=== PATIENT | male | born 1990 | race Caucasian/White ===

== ENCOUNTER 2021-02-10 13:47 | Emergency (ER) | payer MEDICAID, SELFPAY ==
[2021-02-10 14:20] VITALS: BP 150/74; PULSE 82; RESP 18; TEMP 36.9; O2SAT 97; BMI 32.1
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
[2021-02-10] MEDS: Diphth,Pertus(ACell),Tet Adult 0.5 ML SYRINGE IM (15:42)
== END 2021-02-10 15:47 | disposition home or self-care (01) ==
LOC: HO.ED 15:32
PROVIDERS: Emergency Provider Emergency Medicine
DX: S40.871A Other superficial bite of right upper arm, initial encounter (principal); W50.3XXA Accidental bite by another person, initial encounter; Y93.9 Activity, unspecified; Y92.9 Unspecified place or not applicable; Y99.9 Unspecified external cause status
CPT/HCPCS: 90471; 90715; 99283; 99284

== ENCOUNTER → 2021-07-02 14:42 | Outpatient (BNVA) | payer MEDICAID, SELFPAY | PROVIDERS: Referring Provider Emergency Medicine; Visit Provider Surgery | DX: Z01.818 Encounter for other preprocedural examination (principal); K40.90 Unilateral inguinal hernia, without obstruction or gangrene, not specified as recurrent | CPT/HCPCS: 99202 ==

== ENCOUNTER 2021-07-22 12:45 | Outpatient (REF) | payer MEDICAID, SELFPAY | END 2021-07-22 12:46 | disposition home or self-care (01) | LOC: HO.LAB 12:45 | PROVIDERS: Visit Provider Internal Medicine | DX: Z13.89 Encounter for screening for other disorder (principal) | CPT/HCPCS: C9803; U0003; U0005 ==

== ENCOUNTER 2021-07-29 06:46 | Day surgery (SDC) | payer MEDICAID, SELFPAY ==
--- NOTE | 2021-07-28 11:48 | P.CONAN_ITS ---
Documented by User: Elvie Dutta NP 07/28/21 11:48 HPI - Anesthesia Eval Consult details Narrative: 31yo M for Right Hernia Repair Inguinal with Mesh FORMERLY [facility], [facility] Active Problems Active Problems: All Active Problems (Updated 07/02/21 @ 15:04 by Ranjit Cruz MD) Inguinal hernia of right side without obstruction or gangrene (Acute) Past Medical History Medical History HTN (hypertension) Inguinal hernia of right side without obstruction or gangrene No known health problems Surgical History Surgical History History of appendectomy Social History Social History Patient Tobacco Use Status: Current everyday Tobacco user Tobacco use type: Cigarette Cigarette Packs Per Day: 3 Cigarettes Per Day: 60.0 Use of substances other than those prescribed or required for medical reasons: Yes Substance Use Frequency: Daily Are you DNR?: No Advance Directives: No Advance Directives Information Provided: Yes Meds Allergies Allergy/AdvReac Type Severity Reaction Status Date / Time No Known Allergies Allergy Verified 07/29/21 07:46 Exam Exam Date and Time: July 28, 2021 1148 Assessment and Plan Assessment Anesthesia Assessment: Chart Reviewed Documented by User: Lakshmi Coronado MD 07/29/21 09:34 FORMERLY [facility], [facility] Past Medical History Medical History HTN (hypertension) Inguinal hernia of right side without obstruction or gangrene No known health problems Surgical History Surgical History History of appendectomy History of Problems with Anesthesia: No Social History Social History Patient Tobacco Use Status: Current everyday Tobacco user Tobacco use type: Cigarette Cigarette Packs Per Day: 3 Cigarettes Per Day: 60.0 Use of substances other than those prescribed or required for medical reasons: Yes Substance Use Frequency: Daily Are you DNR?: No Advance Directives: No Advance Directives Information Provided: Yes Meds Allergies Allergy/AdvReac Type Severity Reaction Status Date / Time No Known Allergies Allergy Verified 07/29/21 07:46 Exam Airway Mallampati Class: II TM Dist: >3cm Neck ROM: Full Loose/Missing/Broken Teeth: No Heart: RRR Lungs: CTA Assessment and Plan Assessment Anesthesia Assessment: Anesthesia Plan Discussed Final Anesthetic Review History of Problems with Anesthesia: No NPO: Yes ASA Class: II Final Preanesthetic Review: Meds/Allgs Chart Reviewed, Consent Obtained/Reviewed and Anes Risks/Benef Reviewed Patient Risk: Low Procedure Risk: Low Anesthetic Plan Anesthetic Plan: GA Disposition: Standard PACU
[2021-07-29] VITALS (9 sets, daily range): BP systolic 127–144; BP diastolic 77–88; PULSE 45–74; RESP 13–20; TEMP 36.8–37.2; O2SAT 91–99; BMI 29.2
[2021-07-29] MEDS: Lactated Ringers 1,000 ML 100 ML IVCONT (07:45)
--- NOTE | 2021-07-29 08:21 | MHC.SHP ---
Pre-Procedural Eval Section A Date of Service: 07/29/21 The patient is an INPATIENT: No The History & Physical has been completed within 30 days and I have reviewed it.: No Section B Chief Complaint: Inguinal hernia of right side without obstruction Allergies: Allergies Allergy/AdvReac Type Severity Reaction Status Date / Time No Known Allergies Allergy Verified 07/29/21 07:46 Plan I have reviewed the history and physical and performed a pertinent physical examination on my patient. No changes have occurred unless specified.
--- NOTE | 2021-07-29 09:45 | W.PM.OPN ---
Operative Note Operative Note Date of Service: 07/29/21 Narrative: Preop diagnosis: Right inguinal hernia Postop diagnosis: Inguinal hernia, direct Procedure: Repair of right inguinal hernia with mesh Surgeon: Ranjit Cruz MD diploma medical assistant: JUAN Diane The patient is a 31-year-old male with a reducible mass on the right groin area, noticeable with Valsalva maneuvers. He describes discomfort as well. Examination was consistent with a right inguinal hernia. He wanted to proceed with repair. He understood technique of repair with mesh. He was aware of the risks, benefits, and alternatives. He was brought to the operating room and placed supine on the table under general anesthesia via laryngeal mask airway. The right groin was prepped and draped in the usual sterile fashion. A surgical time-out was done. The patient received cefazolin 2 g IV preoperatively I infiltrated the planned line of incision using lidocaine 1%. I made a short incision on the skin using blade 15 along an imaginary line from the anterior superior iliac spine to the pubic ramus. This was carried down through the full thickness of the skin and subcutaneous fat with electrocautery. I reached the external oblique aponeurosis. I bluntly dissected the aponeurosis to define the external ring. I opened up the pubic neurosis overlying the inguinal canal with make a short incision using a blade 15. And extending this inferomedially with an open tip pair of scissors to connect with the external ring. Hemostats were applied to the divided edges of the aponeurosis. I bluntly dissected the underside of the aponeurosis to create a pocket for the mesh. I then bluntly dissected the spermatic cord and its contents with the finger until was able to pass a [place] drain around this. This Harriett drain was used for retraction. I defined the vas deferens and the accompanying vessels. I did not see any the sac on the cord going through the internal ring. However, there was note of significant weakness of the floor of the canal with a small hernia consistent with the direct hernia. I used a medium-sized plug to reinforce this. I secured the plug with Prolene 2-0 sutures to shelving edge of the inguinal ligament laterally and the internal oblique superiorly and medially as well as the pubic ramus inferomedially using inner leaves of the mesh. I reinforced the floor of the canal with a keyhole mesh. The tails of the mesh were passed around the cord at the level of the internal ring and were secured together with Prolene 2 sutures. I flattened the mesh on the floor of the canal and secured this to the shelving edge of the inguinal and laterally and the pubic ramus inferomedially and the internal oblique medially as well as superiorly. I irrigated. Once hemostasis was ensured, I proceeded to close the external oblique aponeurosis a running Dexon 2-0 stitch to re-create the external ring. The subcutaneous layer was reapposed with Dexon 3-0 interrupted sutures. Skin closure was achieved with Dexon 4-0 subcuticular running stitch. Steri-Strips and dressings were applied. The area was infiltrated with Marcaine 0.5% for postop analgesia. Dressings were applied and the procedure was completed The patient tolerated procedure well. There were no complication noted. Initial and final counts of sponges and instruments were correct. Estimated blood loss about 10 cc. The patient was extubated without difficulty and transferred to the recovery room with stable vital signs.
[2021-07-29] MEDS: Acetaminophen 325 MG TABLET 650 MG PO (10:04)
[2021-07-29] MEDS: ondansetron HCL 4 MG/2 ML VIAL IVPUSH (10:04)
[2021-07-29] MEDS: oxyCODONE HCl Immed Release 5 MG TABLET 10 MG PO (10:05)
== END 2021-07-29 11:34 | disposition home or self-care (01) ==
PROVIDERS: Visit Provider Surgery
PROC: (CPT 49505; principal; 2021-07-29 08:40)
DX: K40.90 Unilateral inguinal hernia, without obstruction or gangrene, not specified as recurrent (principal); I10 Essential (primary) hypertension; F17.210 Nicotine dependence, cigarettes, uncomplicated
CPT/HCPCS: 49505; C1781; J0690; J1100; J2250; J2405; J3010

== ENCOUNTER → 2021-08-11 09:35 | Outpatient (BNVA) | payer MEDICAID, SELFPAY | PROVIDERS: PCP Nurse Practitioner; Referring Provider Emergency Medicine; Visit Provider Surgery | DX: Z48.815 Encounter for surgical aftercare following surgery on the digestive system (principal); Z87.19 Personal history of other diseases of the digestive system | CPT/HCPCS: 99212 ==

== ENCOUNTER 2021-08-25 08:41 | Outpatient (REF) | payer MEDICAID, SELFPAY ==
[2021-08-25 08:58] LABS: Binax Internal Control QC Valid; Binax Now Covid-19 Ag Negative (Negative)
== END 2021-08-25 08:42 | disposition home or self-care (01) ==
LOC: HO.LAB 08:41
PROVIDERS: Visit Provider Internal Medicine
DX: Z13.89 Encounter for screening for other disorder (principal)

== ENCOUNTER 2025-04-06 10:41 | Outpatient (REF) | payer MEDICAID, SELFPAY ==
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
--- OUTSIDE RECORDS SUMMARY | 2025-04-06 12:15 | XMS_ITS | Encounter Summary ---
Author Organization [employer] Address [address] [place] [address] [address] [place] [address] Care Team Providers Care Weight Calculator Name Role Phone Kandice Thayer CNP Primary Care Provider [phone] Reason for Visit * Reason Onset Date Comments Med Refill 03/19/2025 Encounter Details Date Type Department Care Team (Late st Contact Info) Description 03/19/2025 Telephone [facility] [address] [place] [address] Kandice Thayer CNP [address] [place] [address] Med Refill Social History Tobacco Use Types Packs/Day Years Used Date Smoking Tobacco: Former Cigarettes Passive Smoke Exposure: Past Smokeless Tobacco: Former Sex and Gender Information Value Date Recorded Sex Assigned at Male 05/25/2022 10:16 AM EDT Legal Sex Male 10:16 AM EDT Gender Identity Male 05/25/2022 10:16 AM EDT Sexual Orientation Don't know 05/25/2022 10 :16 AM EDT documented as of this encounter Miscellaneous Notes * Telephone Encounter - Alanis Johnson - 03/19/2025 1:50 PM EDT TC from pt requesting medication refill. Medications needing refill : oxyCODONE (Roxicodone) 5 MG immediate release tablet To be sent to: [facility]/pharmacy #[id number] - [place], [place] - [address] [place] [address] documented in this encounter Plan of Treatment Upcoming Encounters Date Type Department Care Team (Late st Contact Info) Description 05/01/2025 1:30 PM EDT Clinical Support [facility] [address] [place] [address] Chyna Rehman, RN [address] [place] [address] 05/09/2025 10:45 AM EDT Office Visit [facility] [address] [place] [address] Kandice Thayer CNP [address] [place], [place] [phone] documented as of this encounter Visit Diagnoses Not on filedocumented in this encounter Care Teams Weight Calculator Relationship Specialty Start Date End Date Kandice Thayer CNP [address] [place], [place] [id number] PCP - General Family Medicine 03/09/25 documented as of this encounter
--- OUTSIDE RECORDS SUMMARY | 2025-04-06 12:15 | XMS_ITS | Encounter Summary ---
Author Organization [employer] Address [address] [facility] [address] [place] [address] Care Team Providers Care Environmental Health And Safety Intern Name Role Phone Kandice Thayer CNP Primary Care Provider [phone] Reason for Visit * Reason Onset Date Comments Med Refill 03/19/2025 Encounter Details Date Type Department Care Team (Late st Contact Info) Description 03/19/2025 Telephone [facility] [address] [place] [address] Kandice Thayer CNP [address] [place] [address] Med Refill Social History Tobacco Use Types [...] encounter Miscellaneous Notes * Telephone Encounter - Chyna Rehman RN - 03/19/2025 3:07 PM EDT Pt requesting refill of Oxycodone 5mg. Last refill 03/07/25 qty 42 from an outside provider, Maria Elena * Telephone Encounter - Abigail العلي LPN - 03/19/2025 1:56 PM EDT Was Gabapentin for short term? BUSINESS PROJECT MANAGER checked on 03/19/25 last filled on 03/07/25 #42 (14 day supply) from [facility]. Is PCP prescribing Clonidine? Please advise. * Telephone Encounter - Alanis Johnson - 03/19/2025 1:52 PM EDT TC from pt requesting medication refill. Medications needing refill : cloNIDine (Catapres) 0.1 MG tablet gabapentin (Neurontin) 300 MG capsule To be sent to: [facility]/pharmacy #[id number] documented in this encounter Plan of Treatment Upcoming Encounters Date Type Department Care Team (Late st Contact Info) Description 05/01/2025 1:30 PM EDT Clinical Support [facility] [address] [place] [address] Chyna Rehman, RN [address] [place] [address] 05/09/2025 10:45 AM EDT Office Visit [facility] [address] [place] [address] Kandice Thayer CNP [address] [place] [address] documented as of this encounter Visit Diagnoses Diagnosis Closed fracture of shaft of left fibula with routine healing, unspecified fracture morphology, subsequent encounter Closed fracture of superior ramus of left pubis with routine healing, subsequent encounter documented in this encounter Care Teams Environmental Health And Safety Intern Relationship Specialty Start Date End Date Kandice Thayer CNP [address] [place], [place] [phone] PCP - General Family Medicine 03/09/25 documented as of this encounter
--- OUTSIDE RECORDS SUMMARY | 2025-04-06 12:15 | XMS_ITS | Encounter Summary ---
Author Organization [employer] Address [address] [facility] [address] [place] [address] Care Team Providers Care Stock And Station Agent Name Role Phone Kandice Thayer CNP Primary Care Provider [phone] Encounter Details Date Type Department Care Team (Latest Contact Info) Description 04/05/2025 Travel Social History Tobacco Use Types Packs/Day Years [...] with others, in a hotel, in a intermediate, living outside on the street, on a [...] AM EDT documented as of this encounter Plan of Treatment Upcoming Encounters Date Type Department Care Team (Late st Contact Info) Description 05/01/2025 1:30 PM EDT Clinical Support [facility] [address] [place] [address] Chyna Rehman, RN [address] [place] [address] 05/09/2025 10:45 AM EDT Office Visit [facility] [address] [place] [address] Kandice Thayer CNP [address] [place] [address] documented as of this encounter Visit Diagnoses Not on filedocumented in this encounter Care Teams Stock And Station Agent Relationship Specialty Start Date End Date Kandice Thayer CNP [address] [place] [address] PCP - General Family Medicine 03/09/25 documented as of this encounter
--- OUTSIDE RECORDS SUMMARY | 2025-04-06 12:15 | XMS_ITS | Clinical Summary ---
Author Organization [employer] Address [address] [place] [address] Care Team Providers Care Corner Bead Operator Name Role Phone Jeovany Jose Adesiree FUNES Primary Care Provider [phone] Allergies No known active allergies Medications Melatonin 3 MG tablet dispersible Take 3 tablets by mouth at bedtime. Active naloxone (Narcan) 4 mg/0.1 mL nasal sprayIndicatio ns:Closed fracture of shaft of left fibula with routine healing, unspecified fracture morphology, subsequent encounter,Clos ed fracture of superior ramus of left pubis with routine healing, subsequent encounter Administer 1 spray (4 mg) into affected nostril(s) if needed for opioid reversal. May repeat every 2-3 minutes if needed, alternating nostrils, until medical assistance becomes available. 2 each 03/20/20 25 026 Active gabapentin (Neurontin) 300 MG capsuleIndicat ions:Closed fracture of shaft of left fibula with routine healing, unspecified fracture morphology, subsequent encounter,Clos ed fracture of superior ramus of left pubis with routine healing, subsequent encounter Take 1 capsule (300 mg) by mouth 3 times daily. X 2 weeks 270 capsule 03/20/20 25 025 Active methocarbamol (Robaxin) 500 MG tabletIndicati ons:Closed fracture of shaft of left fibula with routine healing, unspecified fracture morphology, subsequent encounter,Clos ed fracture of superior ramus of left pubis with routine healing, subsequent encounter Take 2 tablets (1,000 mg) by mouth if needed in the morning, at noon, and at bedtime for muscle spasms for up to 14 days. 60 tablet 03/27/20 25 025 Active melatonin 3 MG tablet TAKE 3 TABLET BY MOUTH DAILY AT BEDTIME FOR 14 DAYS 03/07/20 25 Active cloNIDine (Catapres) 0.1 MG tabletIndicati ons:Anxiety Take 1 tablet (0.1 mg) by mouth every 8 (eight) hours. X 2 weeks 30 tablet 03/30/20 25 Active amLODIPine (Norvasc) 5 MG tablet Take 2 tablets (10 mg) by mouth Once per day. 180 tablet 04/02/20 25 Active ASPIRIN 81 MG chewable tablet Chew 1 tablet (81 mg) Once per day. 90 tablet 04/02/20 25 Active traZODone (Desyrel) 50 MG tablet Take 0.5 tablets by mouth at bedtime. 45 tablet 04/02/20 25 Active acetaminophen (Tylenol) 325 MG tabletIndicati ons:Closed fracture of shaft of left fibula with routine healing, unspecified fracture morphology, subsequent encounter Take 3 tablets (975 mg) by mouth every 6 (six) hours. 30 tablet 04/02/20 25 Active oxyCODONE (Roxicodone) 5 MG immediate release tabletIndicati ons:Closed fracture of shaft of left fibula with routine healing, unspecified fracture morphology, subsequent encounter,[facility] ed fracture of superior ramus of left pubis with routine healing, subsequent encounter Take 1 tablet (5 mg) by mouth if needed in the morning, at noon, and at bedtime for moderate pain for up to 14 days. 42 tablet 04/06/20 25 025 Active thiamine (Vitamin B-1) 100 MG tablet Take 1 tablet (100 mg) by mouth Once per day. 30 tablet 2 04/06/20 25 Active pantoprazole (ProtoNix) 40 MG EC tablet Take 1 tablet (40 mg) by mouth in the morning and 1 tablet (40 mg) in the evening. Do not crush, chew, or split. 60 tablet 2 04/06/20 25 Active lisinopril (Prinivil) 20 MG tabletIndicati ons:Hypertensi on, unspecified type Take 1 tablet (20 mg) by mouth Once per day. 30 tablet 11 04/06/20 25 026 Active lisinopril 10 MG tablet Take 1 tablet (10 mg) by mouth in the morning. 30 tablet 11 06/10/20 23 025 Discontinued(M ed list cleanup (will not trigger notification to Pharmacy)) thiamine (Vitamin B-1) 100 MG tablet Take 1 tablet by mouth Once per day. 025 Discontinued(R eorder (will not trigger notification to Pharmacy)) pantoprazole (ProtoNix) 40 MG EC tablet Take 1 tablet by mouth in the morning and 1 tablet in the evening. Do not crush, chew, or split. 025 Discontinued(R eorder (will not trigger notification to Pharmacy)) lisinopril 5 MG tablet Take 1 tablet by mouth Once per day. 025 Discontinued gabapentin (Neurontin) 300 MG capsule Take 1 capsule by mouth 3 times daily. X 2 weeks 025 Discontinued(R eorder (will not trigger notification to Pharmacy)) amLODIPine (Norvasc) 5 MG tablet Take 2 tablets by mouth Once per day. 025 Discontinued(R eorder (will not trigger notification to Pharmacy)) ASPIRIN 81 MG chewable tablet Chew 1 tablet Once per day. 025 Discontinued(R eorder (will not trigger notification to Pharmacy)) traZODone (Desyrel) 50 MG tablet Take 0.5 tablets by mouth at bedtime. 025 Discontinued(R eorder (will not trigger notification to Pharmacy)) cloNIDine (Catapres) 0.1 MG tablet Take 1 tablet by mouth every 8 (eight) hours. X 2 weeks 025 Discontinued(R eorder (will not trigger notification to Pharmacy)) acetaminophen (Tylenol) 325 MG tablet Take 3 tablets by mouth every 6 (six) hours. 025 Discontinued(R eorder (will not trigger notification to Pharmacy)) oxyCODONE (Roxicodone) 5 MG immediate release tablet Take 1 tablet by mouth every 4 (four) hours if needed for moderate pain. 03/07/20 25 025 Discontinued(R eorder (will not trigger notification to Pharmacy)) acetaminophen (Tylenol) 325 MG tabletIndicati ons:Closed fracture of shaft of left fibula with routine healing, unspecified fracture morphology, subsequent encounter Take 3 tablets (975 mg) by mouth every 6 (six) hours. 30 tablet 03/09/20 25 025 Discontinued(R eorder (will not trigger notification to Pharmacy)) lisinopril 10 MG tabletIndicati ons:Hypertensi on, unspecified type Take 1 tablet (10 mg) by mouth Once per day. 30 tablet 11 03/09/20 25 025 Discontinued(I neffective) oxyCODONE (Roxicodone) 5 MG immediate release tabletIndicati ons:Closed fracture of shaft of left fibula with routine healing, unspecified fracture morphology, subsequent encounter,Clos ed fracture of superior ramus of left pubis with routine healing, subsequent encounter Take 1 tablet (5 mg) by mouth every 4 (four) hours if needed for moderate pain for up to 7 days. 15 tablet 03/09/20 25 025 Discontinued(R eorder (will not trigger notification to Pharmacy)) gabapentin (Neurontin) 300 MG capsuleIndicat ions:Closed fracture of shaft of left fibula with routine healing, unspecified fracture morphology, subsequent encounter,Clos ed fracture of superior ramus of left pubis with routine healing, subsequent encounter Take 1 capsule (300 mg) by mouth 3 times daily. X 2 weeks 90 capsule 03/09/20 25 025 Discontinued(R eorder (will not trigger notification to Pharmacy)) methocarbamol (Robaxin) 500 MG tabletIndicati ons:Closed fracture of shaft of left fibula with routine healing, unspecified fracture morphology, subsequent encounter,Clos ed fracture of superior ramus of left pubis with routine healing, subsequent encounter Take 2 tablets (1,000 mg) by mouth if needed in the morning, at noon, and at bedtime for muscle spasms for up to 14 days. 60 tablet 03/09/20 25 025 Discontinued(R eorder (will not trigger notification to Pharmacy)) cloNIDine (Catapres) 0.1 MG tabletIndicati ons:Anxiety Take 1 tablet (0.1 mg) by mouth every 8 (eight) hours. X 2 weeks 30 tablet 03/20/20 25 025 Discontinued(R eorder (will not trigger notification to Pharmacy)) oxyCODONE (Roxicodone) 5 MG immediate release tabletIndicati ons:Closed fracture of shaft of left fibula with routine healing, unspecified fracture morphology, subsequent encounter,Clos ed fracture of superior ramus of left pubis with routine healing, subsequent encounter Take 1 tablet (5 mg) by mouth if needed in the morning, at noon, and at bedtime for moderate pain for up to 14 days. 42 tablet 03/20/20 25 025 Discontinued(R eorder (will not trigger notification to Pharmacy)) Active Problems Problem Noted Date Diagnosed Date Anxiety 2023 Assessment & Plan (04/06/2025 11:52 AM EDT): Controlled on current medications, denies any present sx Essential hypertension 11/23/2020 Resolved Problems Problem Noted Date Diagnosed Date Resolved Date Cigarette smoker 06/25/2023 06/25/2023 03/09/2025 Encounters Date Type Department Care Team Description 04/06/2025 10:00 AM EDT Office Visit [facility] [address] [place] [address] Kandice Thayer CNP Encounter for physical examination (Primary Dx); Hypertension, unspecified type; Closed fracture of shaft of left fibula with routine healing, unspecified fracture morphology, subsequent encounter; Closed nondisplaced subtrochanteric fracture of left femur with routine healing, subsequent encounter; Closed fracture of superior ramus of left pubis with routine healing, subsequent encounter; Anxiety 04/06/2025 Travel 04/05/2025 Travel 04/05/2025 Refill [facility] [address] [place] [address] Kandice Thayer CNP Closed fracture of shaft of left fibula with routine healing, unspecified fracture morphology, subsequent encounter; Closed fracture of superior ramus of left pubis with routine healing, subsequent encounter 04/05/2025 Telephone [facility] [address] [place] [address] Kandice Thayer CNP Med Refill 04/02/2025 Refill [facility] [address] [place] [address] Kandice Thayer CNP Closed fracture of shaft of left fibula with routine healing, unspecified fracture morphology, subsequent encounter 03/30/2025 Patient Outreach [facility] [address] [place] [phone] Kandice Thayer CNP Pre-visit Planning (SDOH screening positive and Tobacco screening positive) 03/30/2025 Refill [facility] [address] [place] [address] Kandice Thayer CNP Anxiety 03/28/2025 Population Health Risk Score [facility] () Department [address] [place] [id number] Provider, Population Health Generic 03/27/2025 2:30 PM EDT Clinical Support [facility] [address] [place] [address] Hayde Arcos RN Anxiety 03/27/2025 Telephone [facility] [address] [place] [address] Kandice Thayer CNP chart prep 03/27/2025 Travel 03/27/2025 Telephone [facility] [address] [place] [address] Kandice Thayer CNP Appointment Request 03/27/2025 Telephone [facility] [address] [place] [address] Kandice Thayer CNP Med Refill 03/20/2025 Orders Only [facility] [address] [place] [address] Kandice Thayer CNP Anxiety (Primary Dx); Closed fracture of shaft of left fibula with routine healing, unspecified fracture morphology, subsequent encounter; Closed fracture of superior ramus of left pubis with routine healing, subsequent encounter 03/19/2025 Telephone [facility] [address] [place] [address] Kandice Thayer CNP Med Refill 03/19/[address] [address] Kandice Thayer CNP Med Refill 03/09/2025 1:30 PM EDT Office Visit [address] [address] Kandice Thayer CNP Hypertension, unspecified type (Primary Dx); Closed fracture of shaft of left fibula with routine healing, unspecified fracture morphology, subsequent encounter; Closed fracture of superior ramus of left pubis with routine healing, subsequent encounter; Open wound of left ankle, subsequent encounter; Closed nondisplaced subtrochanteric fracture of left femur with routine healing, subsequent encounter 03/09/[address] [address] Kandice Thayer CNP VNA Referral 03/09/[address] [address] Faina Hong RN Schedule [facility] Initial appt 03/09/2025 Travel 03/08/[address] [id number] Malick Barrera MA CHARTPREP 02/26/2025 Patient Outreach [facility] [address] [place], [place] [id number] Kandice Thayer CNP Transition Of Care (Tcm) (HDF scheduled) 02/20/[address] [address] Aris Kat MD New Patient from Last 3 Months Immunizations Immunization Administration Dates Next Due Hep B, Adolescent or Pediatric 08/10/1997 Tdap 02/10/2021 Social History Tobacco Use Types Packs/Day Years Used Date Smoking Tobacco: Former Cigarettes Passive Smoke Exposure: Past Smokeless Tobacco: Former Tobacco Cessation:Counseling Given: Not Answered Depression Answer Date Recorded Patient Health Questionnaire-9 Score 4 04/06/2025 Patient Health Questionnaire-9 Score 4 04/06/2025 Last PHQ-9: Questionnaire Data Not on file 0 04/06/2025 Housing Stability Answer Date Recorded What is your housing situation today? I do not have housing (Staying with others, in a hotel, in a usp, living outside on the street, on a [...] the past 12 months, has t he [employer], gas, oil or water company threatened to [...] Don't know 05/25/2022 10 :16 AM EDT Last Filed Vital Signs Vital Sign Reading [...] Mass Index 22.87 04/06/2025 9:54 AM EDT Plan of Treatment Upcoming Encounters Date Type Department Care Team (Late st Contact Info) Description 05/01/2025 1:30 PM EDT Clinical Support [facility] [address] [place] [address] Chyna Rehman, RN [address] [place] [address] 05/09/2025 10:45 AM EDT Office Visit [facility] [address] [place] [address] Kandice Thayer, SHANTEL [address] [place] [address] Health Maintenance Due Date Last Done Comments HIV Screening 1991 Lipid Panel 1991 Hepatitis B Vaccines (2 of 3 - 3-dose series) 09/07/1997 08/10/1997 Alcohol/Substance Use Screening 2003 Family Planning (PISQ) 2006 HPV Vaccines (1 - Male 3-dos e series) 2006 Hepatitis C Screening 2009 Hepatitis A Vaccines (1 of 2 - Risk 2-dose series) 2010 COVID-19 Vaccine (1 - 2023-2 5 season) 2025 Postponed from 03/26 (Supply/Drug Shortage) Influenza Vaccine (#1) 2025 Postp oned from 03/26/2025 (Supply/Drug Shortage) Tobacco Screening 03/09/2026 03/09/2025 SDOH Screening 03/30/2026 03/30/2025 Depression Screening 04/06/2026 04/06/2025, 04/06/2025 Disability Screening 04/06/2026 04/06/2025 DTaP/Tdap/Td Vaccines (2 - T d or Tdap) 02/10/2031 02/10/2021 Zoster Vaccines (1 of 2) 2041 RSV Patients and Patients Aged 60 years or older (1 - 1-dose 75+ series) 2066 HIB Vaccines Aged Out No longer eligi ble based on patient's age to complete this topic IPV Vaccines Aged Out No longer eligi ble based on patient's age to complete this topic Meningococcal B Vaccine Aged Out No l onger eligible based on patient's age to complete this topic Meningococcal Vaccine Aged Out No ambar terrell eligible based on patient's age to complete this topic Pneumococcal Vaccine: Pediatrics (0 to 5 Years) and At-Risk Patients (6 to 49) Years Aged Out No longer eligible b ased on patient's age to complete this topic RSV under 20 months Aged Out No longe r eligible based on patient's age to complete this topic Rotavirus Vaccines Aged Out No longer eligible based on patient's age to complete this topic [place] [address] [place] [address] C3 Care Teams Corner Bead Operator Relationship Specialty Start Date End Date Kandice Thayer CNP [address] [place] [address] PCP - General Family Medicine 03/09/25
--- OUTSIDE RECORDS SUMMARY | 2025-04-06 12:15 | XMS_ITS | Encounter Summary ---
Author Organization [employer] Address [address] [place] [address] Care Team Providers Care Charter Representative Name Role Phone Kandice Thayer CNP Primary Care Provider [phone] Encounter Details Date Type Department Care Team (Latest Contact Info) Description 04/06/2025 Travel Social History Tobacco Use Types Packs/Day [...] with others, in a hotel, in a prison, living outside on the street, on a [...] AM EDT documented as of this encounter Functional Status * Over the [...] AM EDT Bertha Wayne MA * Feeling down, depressed, or hopeless Answer Date of Assessment Author Not at all 04/06/2025 10:35 AM VICKIT Bertha Wayne MA * Trouble falling or staying asleep, or sleeping too much Answer Date of Assessment Author Several days 04/06/2025 10:35 AM Bertha Kaba MA * Feeling tired or having little [...] 04/06/2025 10:35 AM Bertha Kaba MA * Trouble concentrating on things, such as reading the newspaper or watching television Answer Date of Assessment Author Not at all 04/06/2025 10:35 AM IVCKIT Bertha Wayne MA * Moving or speaking so slowly that other people could have noticed? Or the opposite - being so fidgety or restless that you have been moving around a lot more than usual. Answer Date of Assessment Author Not at all 04/06/2025 10:35 AM EDT Bertha Wayne MA * Thoughts that you would be better off or hurting yourself in some way Answer Date of Assessment Author Not at all 04/06/2025 10:35 AM EDT Bertha Wayne MA * Patient Health Questionnaire-9 Score Answer Date of Assessment Author 4 04/06/2025 10:35 AM VICKIT Bertha Wayne MA * How difficult have these problems [...] or control worrying 1 04/06/2025 10:35 AM VICKIT Sa mauricio Mckinnon MA Worrying too much about different things 1 04/06/2025 10:35 AM Sa mauricio Veliz MA Trouble relaxing 1 04/06/2025 10:35 AM VICKIT Bertha Mckinnon MA Being so restless that it is hard to sit still 1 04/06/2025 10:35 AM VICKIT Sa mauricio Mckinnon MA Becoming easily annoyed or irritable 0 04/06/2025 10:35 AM EDT Sa mauricio Mckinnon MA Feeling afraid as if somethi ng awful might happen 1 04/06/2025 10:35 AM VICKIT Sa mauricio Mckinnon MA DREW-7 Total Score 6 04/06/2025 10:35 AM Bertha Veliz MA documented as of this encounter Plan of Treatment Upcoming Encounters Date Type Department Care Team (Late st Contact Info) Description 05/01/2025 1:30 PM EDT Clinical Support [facility] [address] [place] [address] Chyna Rehman, RN [address] [place] [address] 05/09/2025 10:45 AM EDT Office Visit [facility] [address] [place] [address] Kandice Thayer CNP [address] [place] [address] documented as of this encounter Visit Diagnoses Not on filedocumented in this encounter Additional Health Concerns Assessment Noted Time PHQ-9 Depression Total Score: 4 04/06/20 25 10:35 AM EDT documented as of this encounter Care Teams Charter Representative Relationship Specialty Start Date End Date Kandice Thayer CNP [address] [place] [address] PCP - General Family Medicine 03/09/25 documented as of this encounter
--- OUTSIDE RECORDS SUMMARY | 2025-04-06 12:15 | XMS_ITS | Encounter Summary ---
Author Organization [employer] Address [address] [place] [address] Care Team Providers Care Sneller Hand Name Role Phone Kandice Thayer CNP Primary Care Provider [phone] Reason for Visit * Reason Onset Date Comments Med Refill 04/05/2025 Encounter Details Date Type Department Care Team (Late st Contact Info) Description 04/05/2025 Refill [facility] [address] [place] [address] Kandice Thayer CNP [address] [place] [address] Closed fracture of shaft of left fibula with routine healing, unspecified fracture morphology, subsequent encounter; Closed fracture of superior ramus of left pubis with routine healing, subsequent encounter Social History Tobacco Use Types Packs/Day Years [...] with others, in a hotel, in a fdc, living outside on the street, on a [...] the past 12 months, has t he [employer], gas, oil or water company threatened to [...] AM EDT Bertha Wayne MA * Trouble falling or staying asleep, or sleeping too much Answer Date of Assessment Author Several days 04/06/2025 10:35 AM VICKIT Bertha Wayne MA * Feeling tired or having little energy Answer Date of Assessment Author Several days 04/06/2025 10:35 AM VICKIT Bertha Wayne MA * Poor appetite or overeating Answer Date of Assessment Author Several days 04/06/2025 10:35 AM EDT Bertha Wayne MA * Feeling bad about [...] 10:35 AM VICKIT Bertha Wayne MA * Moving or speaking so slowly that other people could have noticed? Or the opposite - being so fidgety or restless that you have been moving around a lot more than usual. Answer Date of Assessment Author Not at all 04/06/2025 10:35 AM VICKIT Bertha Wayne MA * Thoughts that you would be better off or hurting yourself in some way Answer Date of Assessment Author Not at all 04/06/2025 10:35 AM VICKIT Bertha Wayne MA * Patient Health Questionnaire-9 Score Answer Date of Assessment Author 4 04/06/2025 10:35 AM VICKIT Bertha Wayne MA * How difficult have these problems made it for you to do your work, take care of things at home, or get along with other people? Answer Date of Assessment Author Somewhat difficult 04/06/2025 10:35 AM VICKIT Bertha Mead MA * Over the last [...] MA Worrying too much about different things 04/06/2025 10:35 AM VICKIT Sa mauricio Mckinnon MA Trouble relaxing 1 04/06/2025 10:35 AM VICKIT Bertha Mckinnon MA Being so restless that it is hard to sit still 04/06/2025 10:35 AM Sa mauricio Veliz MA Becoming easily annoyed or irritable 0 04/06/2025 10:35 AM EDT Sa mauricio Mckinnon MA Feeling afraid as if somethi ng awful might happen 1 04/06/2025 10:35 AM EDT Sa mauricio Mckinnon MA DREW-7 Total Score 6 04/06/2025 10:35 AM EDT Bertha Mckinnon MA documented as of this encounter Miscellaneous Notes * Telephone Encounter - Chyna Rehman RN - 04/05/2025 3:55 PM EDT TC to pt. RECORDS ADMINISTRATOR initial visit scheduled for 05/01/25 @ 1:30pm. * Telephone Encounter - Jim Espinoza - 04/05/2025 3:27 PM EDT TC from pt requesting medication refill. Medications needing refill : oxyCODONE (Roxicodone) 5 MG immediate release tablet To be sent to: [facility]/pharmacy #[id number] [place], [place] - [address] [place] [address] documented in this encounter Plan of Treatment Upcoming Encounters Date Type Department Care Team (Late st Contact Info) Description 05/01/2025 1:30 PM EDT Clinical Support [facility] [address] [place] [address] Chyna Rehman RN [address] [place] [address] 05/09/2025 10:45 AM EDT Office Visit [facility] [address] [place] [address] Kandice Thayer, SHANTEL [address] [place] [address] documented as of this encounter Visit Diagnoses Diagnosis Closed fracture of shaft of left fibula with routine healing, unspecified fracture morphology, subsequent encounter Closed fracture of superior ramus of left pubis with routine healing, subsequent encounter documented in this encounter Care Teams Sneller Hand Relationship Specialty Start Date End Date Kandice Thayer CNP [address] [place] [id number] PCP - General Family Medicine 03/09/25 documented as of this encounter
--- OUTSIDE RECORDS SUMMARY | 2025-04-06 12:16 | XMS_ITS | Encounter Summary ---
Author Organization [employer] Address [address] [place] [address] Care Team Providers Care Readiness Paraprofessional Name Role Phone Kandice Thayer CNP Primary Care Provider [phone] Reason for Visit * Reason Onset Date Comments Med Refill 04/02/2025 Encounter Details Date Type Department Care Team (Late st Contact Info) Description 04/02/2025 Refill [facility] MED & PEDS [address] [place] [address] Kandice Thayer CNP [address] [place] [address] Closed fracture of shaft of left fibula with routine healing, unspecified fracture morphology, subsequent encounter Social History Tobacco Use Types Packs/Day Years Used Date Smoking Tobacco: Former Cigarettes Passive Smoke Exposure: Past Smokeless Tobacco: Former Housing Stability Answer Date Recorded What is your housing situation today? I do not have housing (Staying with others, in a hotel, in a custodial, living outside on the street, on a [...] off services in your home? No 03/30/2025 Internet Access Answer Date Recorded Internet Access [...] encounter Miscellaneous Notes * Telephone Encounter - Darlene Bhagat LPN - 04/02/2025 11:24 AM EDT Last seen 03/09/25. * Telephone Encounter - Alanis Johnson - 04/02/2025 11:09 AM EDT TC from pt requesting medication refill. Medications needing refill : acetaminophen (Tylenol) 325 MG tablet amLODIPine (Norvasc) 5 MG tablet ASPIRIN 81 MG chewable tablet pantoprazole (ProtoNix) 40 MG EC tablet thiamine (Vitamin B-1) 100 MG tablet gabapentin (Neurontin) 300 MG capsule To be sent to: [facility]/pharmacy #[id number] [place] [address] documented in this encounter Plan of Treatment Upcoming Encounters Date Type Department Care Team ([facility] st Contact Info) Description 05/01/2025 1:30 PM EDT Clinical Support [facility] MED & PEDS [address] [place] [address] Chyna Rehman, AG [address] [place] [address] 05/09/2025 10:45 AM EDT Office Visit [facility] MED & PEDS [address] [place] [address] Kandice Thayer CNP [address] [place] [address] documented as of this encounter Visit Diagnoses Diagnosis Closed fracture of shaft of left fibula with routine healing, unspecified fracture morphology, subsequent encounter documented in this encounter Care Teams Readiness Paraprofessional Relationship Specialty Start Date End Date Kandice Thayer CNP [address] [place] [address] PCP - General Family Medicine 03/09/25 documented as of this encounter
--- OUTSIDE RECORDS SUMMARY | 2025-04-06 12:16 | XMS_ITS | Encounter Summary ---
Author Organization [employer] Address [address] [place] [address] Care Team Providers Care Commutator Inspector Name Role Phone Kandice Thayer CNP Primary Care Provider [phone] Reason for Visit * Reason Onset Date Comments Med Refill 04/05/2025 Encounter Details Date Type Department Care Team (Late st Contact Info) Description 04/05/2025 Telephone [facility] MED & PEDS [address] [place] [address] Kandice Thayer CNP [address] [place] [address] Med Refill Social History Tobacco Use Types [...] 10:35 AM EDT Bertha Wayne MA * Moving or speaking [...] or on edge 1 04/06/2025 10:35 AM EDSa mauricio Tatum [place] Not being able to stop or control worrying 1 04/06/2025 10:35 AM Sa mauricio Veliz MA Worrying too much about different things 1 04/06/2025 10:35 AM Sa mauricio Veliz [place] Trouble relaxing 1 04/06/2025 10:35 AM Bertha Veliz MA Being so restless that it is hard to sit still 1 04/06/2025 10:35 AM Sa mauricio Veliz [place] Becoming easily annoyed or irritable 0 04/06/2025 10:35 AM EDT Sa mauricio Mckinnon [place] Feeling afraid as if somethi ng awful might happen 1 04/06/2025 10:35 AM EDT Sa mauricio Mckinnon MA DREW-7 Total Score 6 04/06/2025 10:35 AM EDT Bertha Mckinnon MA documented as of this encounter Miscellaneous Notes * Telephone Encounter - Kandice Thayer CNP - 04/05/2025 3:40 PM EDT I will await to fill these until I see pt tomorrow to confirm their indication, thanks! * Telephone Encounter - Darlene Bhagat LPN - 04/05/2025 3:29 PM EDT Medication requesting below are not on current med list Patient does have an appointment 04.06.25 * Telephone Encounter - Jim Espinoza - 04/05/2025 3:19 PM EDT TC from pt requesting medication refill. Medications needing refill : pantoprazole (ProtoNix) 40 MG EC tablet thiamine (Vitamin B-1) 100 MG tablet To be sent to: [facility]/pharmacy #[id number] Contact pt for any up dates(per pr) documented in this encounter Plan of Treatment Upcoming Encounters Date Type Department Care Team (Late st Contact Info) Description 05/01/2025 1:30 PM EDT Clinical Support [facility] MED & PEDS [address] [place] [address] Chyna Rehman, RN [address] [place] [address] 05/09/2025 10:45 AM EDT Office Visit [facility] MED & PEDS [address] [place] [address] Kandice Thayer CNP [address] [place], [place] [id number] documented as of this encounter Visit Diagnoses Not on filedocumented in this encounter Care Teams Commutator Inspector Relationship Specialty Start Date End Date Kandice Thayer CNP [address] [place] [id number] PCP - General Family Medicine 03/09/25 documented as of this encounter
[2025-04-06 14:24] LABS: MANUAL DIFF FLAG NO
[2025-04-06 14:33] LABS: Hematocrit 37.6 % (42.0-52.0); Hemoglobin 12.9 g/dl (14.0-18.0); Imm Gran Abs Auto 0.03 X10*3/uL (0.00-0.03); Imm Gran Pct Auto 0.4 % (0.0-0.4); Lymphocytes Absolute Auto 1.4 X10*3/uL (1.2-4.9); Mean Corpuscular HGB Conc 34.3 g/dl (31.0-36.0); Mean Corpuscular Hemoglobin 31.3 pg (27.0-33.0); Mean Corpuscular Volume 91.3 fL (80.0-98.0); NRBC Abs Auto 0.000 X10*3/uL (0.0-0.012); NRBC Pct Auto 0.0 /100WBC (0.0-0.2); Platelet Count 362 X10*3/uL (160-400); Red Blood Count 4.12 X10*6/uL (4.60-5.80); White Blood Count 8.4 X10*3/uL (4.8-10.8)
[2025-04-06 14:46] LABS: Hemoglobin A1C 98.3774 umol/L; Total Hemoglobin (HGBA1C) 3443.9699 umol/L
[2025-04-06 15:20] LABS: Anion Gap 12 (12-20); Blood Urea Nitrogen 16 mg/dL (9-16); Calcium 9.5 mg/dL (8.4-10.2); Carbon Dioxide 28 mmol/L (22-29); Chloride 103 mmol/L (96-108); Cholesterol 179 mg/dL (<200); Estimated Glomerular Filt Rate > 60; HDL Cholesterol 50 mg/dL (>40); Potassium 3.8 mmol/L (3.3-5.1); Sodium 139 mmol/L (135-145); Triglycerides 104 mg/dL (<150)
[2025-04-06 16:20] LABS: Free T4 (Free Thyroxine) 1.20 ng/dL (0.71-1.85)
[2025-04-07 09:49] LABS: HIV Num 1 0.04 S/CO (0.00-0.99); ~HepC Num1 0.10 S/CO (0.00-0.79); ~Hepatitis C Antibody Nonreactive (Nonreactive)
[2025-04-07 16:33] LABS: HIV RNA PCR Qn Copies NOT DETECTED copies/mL (NOT DETECTED); HIV RNA PCR Qn Log Copies NOT DETECTED (NOT DETECTED)
== END 2025-04-06 10:42 | disposition home or self-care (01) ==
LOC: HO.CHCLDS 10:41
DX: Z00.00 Encounter for general adult medical examination without abnormal findings (principal); Z11.4 Encounter for screening for human immunodeficiency virus [HIV]; Z11.59 Encounter for screening for other viral diseases
CPT/HCPCS: 36415; 80048; 80061; 83036; 84439; 84443; 85025; 86803; 87389; 87536

== ENCOUNTER 2025-07-09 15:00 | Outpatient (RCR) | payer MEDICAID, SELFPAY | END 2025-07-10 16:16 | disposition home or self-care (01) | LOC: HO.PT 15:00 | DX: S82.402D Unspecified fracture of shaft of left fibula, subsequent encounter for closed fracture with routine healing (principal) | CPT/HCPCS: 97110; 97112; 97140; 97162; 97530 ==